=== PATIENT | male | born 1980 | race Caucasian/White ===

== ENCOUNTER 2016-10-19 03:51 | Emergency (ER) | payer OTHER ==
[~2016-10-19] VITALS: Ht 175.3 cm; Wt 80.7 kg
[2016-10-19] MEDS ORDERED: ASPIRIN 81 MG TAB.CHEW ONE (04:25)
[2016-10-19] MEDS ORDERED: ACETAMINOPHEN ES 500 MG TABLET ONE (04:25)
[2016-10-19] MEDS ORDERED: NITROGLYCERIN PACKET 1 GM PACKET ONE (04:25)
[2016-10-19 04:29] LABS: BASOPHILS % (AUTO) 0.3 % (0.0-2.0); DIFF TOTAL % 100 %; EOSINOPHILS # (AUTO) 0.1 /CMM (0.0-0.7); HEMATOCRIT 41 % (39-51); HEMOGLOBIN 13.8 g/dL (13.5-17.5); LYMPHOCYTES # (AUTO) 1.2 /CMM (0.8-4.8); LYMPHOCYTES % (AUTO) 18.7 % (20.0-44.0); MEAN CORPUSCULAR HEMOGLOBIN 29 PG (26.0-33.0); MEAN CORPUSCULAR HGB CONC 33 g/dl (31.0-36.0); MEAN CORPUSCULAR VOLUME 86 fL (80-96); MONOCYTES # (AUTO) 0.5 /CMM (0.1-1.30); MONOCYTES % (AUTO) 7.2 % (2.0-12.0); NEUTROPHILS # (AUTO) 4.6 /CMM (1.8-8.9); NEUTROPHILS % (AUTO) 72.8 % (43.0-81.0); PLATELET COUNT (AUTO) 240 /CMM (150-450); WHITE BLOOD COUNT (AUTO) 6.4 K/uL (4.3-11.0)
[2016-10-19] MEDS ORDERED: NITROGLYCERIN PACKET 1 GM PACKET TD ONE (04:30)
[2016-10-19] MEDS ORDERED: ACETAMINOPHEN ES 500 MG TABLET PO ONE (04:30)
[2016-10-19] MEDS ORDERED: ASPIRIN 81 MG TAB.CHEW PO ONE (04:30)
[2016-10-19 04:54] LABS: INR 0.94 (0.87-1.13); PROTHROMBIN TIME 10.1 SECS (9.5-12.7)
[2016-10-19 05:31] LABS: CHLORIDE 105 mmol/L (98-107); POTASSIUM 3.9 mmol/L (3.5-5.1); SODIUM SERUM 141 mmol/L (136-145)
[2016-10-19 05:32] LABS: ALANINE AMINOTRANSFERASE 49 U/L (12-78); ANION GAP 9 (5-14); ASPARTATE AMINOTRANSFERASE 19 U/L (15-37); BILIRUBIN,DIRECT 0.1 mg/dL (0.0-0.2); BILIRUBIN,TOTAL 0.3 mg/dL (0.2-1.0); CALCIUM, SERUM 8.9 mg/dL (8.5-10.1); CARBON DIOXIDE 31 mmol/L (21-32); GFR 84 mL/min (>60); GLUCOSE 110 mg/dL (74-106); INDIRECT BILIRUBIN 0.2 mg/dL (0.0-1.1); UREA NITROGEN, BLOOD 20 mg/dL (7-18)
[2016-10-19 05:33] LABS: TROPONIN I < 0.017 ng/mL (0.00-0.056)
[2016-10-19 08:27] VITALS: BP 130/50
== END 2016-10-19 08:29 | disposition home or self-care (01) ==
LOC: ER 03:55
DX: R07.9 Chest pain, unspecified (principal); R00.2 Palpitations; F17.210 Nicotine dependence, cigarettes, uncomplicated
CPT/HCPCS: 36415; 71010; 80048; 80076; 84484 ×2; 85025; 85378; 85730; 93005; 99285; A4606; Z7610